=== PATIENT | female | born 2000 | race Caucasian/White ===

== ENCOUNTER 2020-07-23 06:21 | Emergency (ER) | payer BC, SELFPAY ==
[2020-07-23] VITALS (7 sets, daily range): BP systolic 95–116; BP diastolic 70–82; PULSE 72–100; RESP 16–18; TEMP 36.6; O2SAT 99–100
--- NOTE | ~2020-07-23 | US_ITS ---
EXAMINATION: US pelvic complete w TV DATE: 07/23/2020 10:42 INDICATION: Right-sided pelvic pain. TECHNIQUE: Multiple transabdominal and endovaginal sonographic images of the pelvis were obtained. COMPARISON: None. FINDINGS: The anteverted uterus measures 8.1 x 2.7 x 4.3 cm. The endometrial complex measures 9 mm in thicknes s. The right ovary measures 2.4 x 1.9 x 1.9 cm. A couple small follicles the largest measuring 8mm. T he left ovary measures 3.1 x 2.4 x 2.4 cm. Cystic structures identified at the left adnexa on prior C T correspond to multiple left ovarian cysts, the majority simple anechoic measuring up to 10 mm. In a ddition there is a larger 1.7 x 1.3 x 1.3 cm complex cystic lesion in the left ovary with vascular fl ow to the periphery but not within the central hypoechoic region most likely representing either a co rpus luteum cyst or hemorrhagic cyst. There is normal vascular flow in the ovaries. No hydrosalpinx. There is no free fluid in the pelvis. IMPRESSION: 1. Bilateral simple appearing ovarian cysts/follicles as well as a larger 1.7 cm complex cystic lesio n in the left ovary most likely hemorrhagic cyst or corpus luteum cyst. Recommend 6-12 week ultrasoun d follow-up. Reviewed, dictated and finalized at location A. IMPRESSION: 1. Bilateral simple appearing ovarian cysts/follicles as well as a larger 1.7 c m complex cystic lesion in the left ovary most likely hemorrhagic cyst or corpu s luteum cyst. Recommend 6-12 week ultrasound follow-up.
--- NOTE | ~2020-07-23 | CT_ITS ---
EXAMINATION: CT abdomen pelvis w con DATE: 07/23/2020 09:06 INDICATION: Right lower quadrant abdominal pain. TECHNIQUE: Computed tomography (CT) of the abdomen and pelvis was performed with 100 mL Omnipaque-350 intravenous contrast. Automated exposure control and iterative reconstruction technique were employe d. The dose-length product was 196.80 mGy-cm. COMPARISON: None FINDINGS: Lung bases are clear. Heart size is normal. No pericardial or pleural effusion. Liver, gallbladder, s pleen, pancreas, bilateral adrenal glands and kidneys are normal. Bowels including the appendix are n ormal. Bladder and anteverted uterus are normal. There are couple small follicles measuring up to 8 m m at the right adnexa. A few larger cystic structures measuring up to 1.5 cm at the left adnexa with suggestion that they connect into a tubular structure, possibly hydrosalpinx. No abscess or free intr aperitoneal gas or fluid. No pathologically enlarged abdominal or pelvic lymphadenopathy. Bones are u nremarkable. IMPRESSION: 1. Normal gallbladder and appendix. 2. Multiple left ovarian cyst versus left-sided hydrosalpinx. Reviewed, dictated and finalized at location A.
--- NOTE | 2020-07-23 07:02 | ED.ABDPAIN ---
HPI - Abdominal Pain General Chief Complaint: Abdominal Pain Stated Complaint: abd pain Time Seen by Provider: 07/23/20 07:01 Source: patient and family Mode of arrival: ambulatory Limitations: no limitations History of Present Illness HPI narrative: Patient is a 19-year-old female who presents for evaluation of right-sided abdominal pain. Patient states that pain awaken her from sleep approximately 4:30 in the morning, described as dull, aching in nature without radiation to the flank or pelvic area. Patient denies any vaginal discharge or bleeding. No dysuria or hematuria. She denies fever, has had some associated nausea without vomiting. No history of abdominal pain such as this. No sick contacts at home. No diarrhea or constipation. Patient does have a history of hernia repair surgery as a child. She denies history of other abdominal surgeries. Last oral intake was approximately 7-1/2 hours ago. Related Data Allergies Allergy/AdvReac Type Severity Reaction Status Date / Time Penicillins Allergy Hives Verified 07/23/20 07:24 Review of Systems Review of Systems: Narrative: CONSTITUTIONAL: Denies fever CARDIOVASCULAR: Denies chest pain RESPIRATORY: Denies cough or dyspnea. GASTROINTESTINAL: Reports right-sided abdominal pain SKIN: Denies rash MUSCULOSKELETAL: Denies back pain NEUROLOGIC: Denies headache PMFSH Past Medical History Medical History (Updated 07/23/20 @ 11:10 by Concepcion Anderson MD) No pertinent past medical history Surgical History Surgical History (Updated 07/23/20 @ 07:31 by Concepcion Anderson MD) H/O hernia repair Social History Social History (Updated 07/23/20 @ 07:31 by Concepcion Anderson MD) Smoking status: Current some day smoker Tobacco type: e-cigarettes/vaping Substance use: never Living arrangements: with family Gender identity (if verbalized by the patient): Female Exam Narrative: Exam Narrative: GENERAL: Awake, alert, conversant HEAD: Normocephalic, atraumatic. EYES: PERRLA and EOMI. ENT: Nares clear, no rhinorrhea or epistaxis. Mucous membranes moist. NECK: Supple. CHEST: No respiratory distress, breathing even and non labored HEART: Regular rate, sinus rhythm ABDOMEN:Non distended, mild right lower quadrant tenderness to palpation, no guarding, no rebound, nonrigid, negative Rosving sign Pelvic exam: Labia majora and minora normal without lesions. Vagina without blood. No cervical motion tenderness. No adnexal tenderness or fullness bilaterally. No discharge present. EXTREMITIES: Normal range of motion. No edema. SKIN: Warm, dry, no rash. NEURO:No focal deficits. Alert and oriented x3 Course Vital Signs Vital signs: Vital Signs Temperature 36.6 C 07/23/20 06:25 Pulse Rate 90 07/23/20 06:25 Respiratory Rate 16 07/23/20 06:25 Blood Pressure 113/70 07/23/20 06:25 Pulse Oximetry 100 07/23/20 06:25 Temperature 36.6 C 07/23/20 06:25 Pulse Rate 88 07/23/20 10:40 Respiratory Rate 18 07/23/20 10:40 Blood Pressure 106/78 07/23/20 10:40 Pulse Oximetry 100 07/23/20 10:40 MDM - Abdominal Pain MDM Narrative Medical decision making narrative: Patient presenting for evaluation of right lower quadrant abdominal pain. At the time of assessment, ABCs are intact and vital signs are stable. Patient has focal right lower quadrant tenderness which is mild in nature. No guarding. Lab and imaging evaluations are reviewed, and patient has no leukocytosis, no electrolyte derangement, no UTI. CT scan shows no evidence of cholecystitis or appendicitis. There was concern for possible left-sided hydrosalpinx I did a pelvic exam which was relatively unremarkable without discharge or bleeding. No tenderness. No signs of cervicitis or PID clinically. Ultrasound then obtained which shows bilateral ovarian cysts, a complex cyst on the left, and no hydrosalpinx. At this point, unknown etiology for the right-sided pain. Perhaps this is maurice
[2020-07-23 07:10] LABS: Basophils Percent Auto 0.4 % (0.2-1.2); Eosinophils Absolute Auto 0.1 K/mm3 (0-0.3); Eosinophils Percent Auto 1.2 % (0-4.4); Hematocrit 36.8 % (37.0-47.0); Hemoglobin 12.9 g/dL (12.0-15.0); Immature Granulocyte Absolute 0.03 K/mm3 (0.00-0.031); Immature Granulocyte Percent A 0.4 % (0-0.5); Lymphocytes Absolute Auto 2.36 K/mm3 (0.9-3.2); Lymphocytes Percent Auto 34.4 % (18.3-44.2); Mean Corpuscular HGB Conc 35.1 g/dl (32-36); Mean Corpuscular Hemoglobin 31.4 pg (26-34); Mean Corpuscular Volume 89.5 fl (80-100); Mean Platelet Volume 9.6 fl (7.4-10.4); Monocytes Absolute Auto 0.5 K/mm3 (0.1-0.6); Monocytes Percent Auto 7.3 % (2.6-8.5); Neutrophils Absolute Auto 3.9 K/mm3 (1.3-6.7); Neutrophils Percent Auto 56.3 % (45.5-73.1); Platelet Count Result 232 k/mm3 (150-375); Red Blood Count 4.11 M/mm3 (4.2-5.4); Red Cell Distribution Width 11.7 % (11.5-14.5); White Blood Count 6.9 K/mm3 (4.5-10.0)
[2020-07-23 07:12] LABS: Add Urine Microscopic? NO; Appearance Urine Clear (Clear); Bilirubin Urine Negative (Negative); Blood Urine Negative (Negative); Color Urine Straw (Yellow); Glucose Urine UA Negative (Negative); Ketones Urine Negative (Negative); Leukocyte Esterase Ur Negative LEU/UL (Negative); Nitrate Urine Negative (Negative); Protein Urine Negative (Negative); Specific Grav Ur 1.009 (1.001-1.035); Urobilinogen Urine Negative mg/dL (<2.0)
[2020-07-23 07:21] LABS: Alanine Aminotransferase 17 U/L (4-35); Albumin Level 4.6 g/dL (3.5-5.1); Alkaline Phosphatase 71 U/L (38-126); Anion Gap 9 mmol/L (8-16); Aspartate Amino Transferase 24 U/L (14-36); Bilirubin,Total 0.3 mg/dL (0.2-1.3); Blood Urea Nitrogen 13 mg/dL (7-17); Calcium 9.2 mg/dL (8.4-10.2); Carbon Dioxide 24 mmol/L (22-30); Chloride 104 mmol/L (98-107); Estimated Glomerular Filt Rate > 60; Glucose 121 mg/dL (65-105); Lipase 40 U/L (23-300); Potassium 3.4 mmol/L (3.4-5.0); Sodium 137 mmol/L (137-145)
[2020-07-23] MEDS: ONDANSETRON INJ 4 MG/2 ML VIAL IV PUSH (07:29)
[2020-07-23] MEDS: SODIUM CHLORIDE 0.9% IV 1,000 ML 999 ML IV CONT (07:29)
[2020-07-23] MEDS: MORPHINE SULFATE 2 MG/ML INJ IV PUSH (08:28)
== END 2020-07-23 11:25 | disposition home or self-care (01) ==
PROVIDERS: General Practice; Emergency Provider Emergency Medicine
DX: R10.9 Unspecified abdominal pain (principal); R93.89 Abnormal findings on diagnostic imaging of other specified body structures; F17.290 Nicotine dependence, other tobacco product, uncomplicated
CPT/HCPCS: 36415; 74177; 76830; 76856; 80053; 81003; 81025; 83690; 85025; 87070; 87491; 87591; 87808; 96361; 96365; 96375; 99284; J0131; J2270; J2405; J7030; Q9967